=== PATIENT | female | born 1980 | race Caucasian/White ===

== ENCOUNTER 2018-07-19 17:04 | Emergency (ER) | payer MEDICAID ==
[~2018-07-19] VITALS: Ht 152.4 cm; Wt 84.0 kg
[2018-07-19 17:21] VITALS: BP 143/82
[2018-07-19] MEDS ORDERED: ACET1TAB12 PO (17:28)
== END 2018-07-19 17:41 | disposition home or self-care (01) ==
LOC: ER 17:05
DX: S06.0X0A Concussion without loss of consciousness, initial encounter (principal); Z88.2 Allergy status to sulfonamides; Z88.1 Allergy status to other antibiotic agents; W22.8XXA Striking against or struck by other objects, initial encounter; Y93.89 Activity, other specified; Y92.89 Other specified places as the place of occurrence of the external cause; Y99.8 Other external cause status
CPT/HCPCS: 99283